=== PATIENT | female | born 1985 | race Caucasian/White ===

== ENCOUNTER 2017-02-07 04:33 | Emergency (ER) | payer MEDICAID ==
--- NOTE | 2017-02-13 21:34 | ER ---
ADMIT: 02/07/2017 RM/LOC: ER [facility] MR#: [id number] [address] [id number] [place] [address] Emergency Room Report SEX: F AGE: 31 : 1985 DATE: 02/07/2017 A 31-year-old comes to the Emergency Department with 1 day of abdominal pain in the right upper quadrant. Past history is that of type 2 diabetes. See T- sheet for remainder of history and physical. This patient was seen by Dr. Ramirez, who is following up on the CT scan. Lab work was apparently normal. UA was contaminated with high number of squamous. CT scan, which was pending at the time of the handover was normal, showed no acute findings. The patient was discharged with diagnosis of abdominal pain. Instructed to follow up with her doctor this coming week. DIAGNOSIS: Abdominal pain. Alvaro Ballard MD/ garett JOB #: [id number] CC: Marco A Ramirez MD, Attending Physician Jluis Del Castillo MD, Family Physician
== END 2017-02-07 08:15 | disposition home or self-care (01) ==
LOC: ER 04:33
DX: R10.11 Right upper quadrant pain (principal); E11.9 Type 2 diabetes mellitus without complications; F17.210 Nicotine dependence, cigarettes, uncomplicated; Z79.899 Other long term (current) drug therapy

== ENCOUNTER → 2017-02-09 | Outpatient (CLI) | payer MEDICAID | END | disposition home or self-care (01) | DX: R10.11 Right upper quadrant pain (principal); R74.8 Abnormal levels of other serum enzymes ==

== ENCOUNTER 2017-03-02 05:27 | Day surgery (SDC) | payer MEDICAID ==
[~2017-03-02] VITALS: Ht 149.9 cm; Wt 64.9 kg
--- NOTE | 2017-03-02 11:29 | OR ---
ADMIT: 03/02/2017 RM/LOC: [facility] MR#: [id number] [place] [address] [place] [id number] [place] [address] Operative/Delivery Room Report SEX: F AGE: 32 : 1985 SURGERY DATE: 03/02/2017 SURGEON: Ravindra Marshall MD PREOPERATIVE DIAGNOSIS: Biliary dyskinesia. POSTOPERATIVE DIAGNOSIS: Biliary dyskinesia. PROCEDURE PERFORMED: Laparoscopic cholecystectomy with intraoperative cholangiogram. MANAGER MECHANICAL: YASEMIN Fine ANESTHESIA: General endotracheal with the addition of Marcaine into the wounds postprocedure. ESTIMATED BLOOD LOSS: Less than 5 mL. DESCRIPTION OF PROCEDURE: After appropriate informed consent was obtained, the patient was brought to the operating room. General endotracheal anesthesia was induced. The patient's abdomen was prepped and draped in a sterile fashion. A small infraumbilical incision was created. Veress needle introduced and the abdomen was insufflated with CO2. A 5 mm trocar was placed. Camera was introduced and the abdomen was surveyed. She had no intraabdominal adhesions. Three additional ports were placed. The gallbladder was grasped, retracted up over the edge of liver. Infundibulum was grasped and retracted laterally. Cystic duct and cystic artery were easily dissected out. A single clip was placed on the cystic duct on the gallbladder side. A small ductotomy was made. Cholangiogram catheter was introduced and intraoperative cholangiogram was obtained, this revealed prompt emptying of contrast into the duodenum, good filling of the right and left hepatic ducts. No evidence of any filling defects. She did have a couple bubbles that went up into the left hepatic duct, but those promptly ADMIT: 03/02/2017 RM/LOC: [facility] MR#: [id number] [address] [place] [address] [place] [id number] [place] [address] Operative/Delivery Room Report SEX: F AGE: 32 : 1985 disappeared. The catheter was removed. Three clips placed on the cystic duct on the patient's side. The cystic artery was also clipped and both structures were divided. The gallbladder was then reflected off the liver bed using hook electrocautery. . With the gallbladder freed up, it was placed in EndoCatch bag and brought out through the subxiphoid port site. The port was re- introduced. Right upper quadrant copiously irrigated and suctioned out. These all appeared hemostatic. All the wounds were infiltrated with Marcaine. The subxiphoid fascial defect was closed with a [id number] 0 Vicryl suture. The abdomen was next desufflated, ports removed, skin closed with 4-0 Monocryl in the subcuticular layer. Sterile dressings were applied. YASEMIN Fine, assisted in this entire procedure. His help was necessary for retraction and camera driving. Ravindra Marshall MD/ garett JOB #: [id number] CC: Ravindra Marshall, Attending Physician NO FAMILY PHYSICIAN, Family Physician
== END 2017-03-02 12:45 | disposition home or self-care (01) ==
LOC: SSS 05:27
PROC: 0FT44ZZ Resection of Gallbladder, Percutaneous Endoscopic Approach (ICD-10-PCS; principal; 2017-03-02)
PROC: BF03YZZ Plain Radiography of Gallbladder and Bile Ducts using Other Contrast (ICD-10-PCS; principal; 2017-03-02)
DX: K82.8 Other specified diseases of gallbladder (principal); E11.9 Type 2 diabetes mellitus without complications; F17.210 Nicotine dependence, cigarettes, uncomplicated; F41.9 Anxiety disorder, unspecified; E66.3 Overweight; Z79.4 Long term (current) use of insulin